=== PATIENT | male | born 1955 | race Hispanic/Latino ===

== ENCOUNTER 2018-04-05 09:16 | Observation (INO) | payer BC ==
[2018-04-05 09:46] LABS: #Basophils 0.1 thou/uL (0.0-0.2); #Eosinphils 0.2 thou/uL (0.0-0.7); #Lymphocytes 2.5 thou/uL (1.20-3.40); #Monocytes 0.3 thou/uL (0.11-0.59); #Neutrophils 2.5 thou/uL (1.40-6.50); %Basophils 0.9 % (0.0-1.0); %Eosinophils 3.8 % (0.0-10.0); %Lymphocytes 45.1 % (21.0-51.0); %Monocytes 6.1 % (0.0-10.0); %Neutrophils 44.2 % (42.0-75.0); Hemoglobin 14.8 g/dL (14.0-18.0); Mean Corpuscular Hemoglobin 28.9 pg (27.0-31.0); Mean Corpuscular Volume 90.1 fL (78.0-98.0); Mean Platelet Volume 7.1 fL (7.4-10.4); Platelet Count 256 thou/uL (130-400); RBC Distribution Width 12.2 % (11.5-14.5); Red Blood Cell (RBC) Count 5.14 mill/uL (4.70-6.10); White Blood Cell (WBC) Count 5.6 thou/uL (4.8-10.8)
--- NOTE | 2018-04-05 10:13 | RAD ---
PORTABLE CHEST 1 VIEW: Date: 04/05/18 Time: 0846 hours HISTORY: Chest pain radiating to the left arm with difficulty breathing and nausea. FINDINGS: Comparison made with exam of 06/16/16. The heart size is normal. The lungs are expanded without focal areas of consolidation, pneumothoraces , or pleural effusions. IMPRESSION: No radiographic evidence of acute cardiopulmonary process. POS: [facility]
[2018-04-05 10:14] LABS: ALT (SGPT) 29 U/L (8-55); AST (SGOT) 23 U/L (5-34); Albumin 3.8 g/dL (3.4-4.8); Alkaline Phosphatase 86 U/L (40-150); Anion Gap 13 mmol/L (10-20); BUN (Urea Nitrogen) 12 mg/dL (8.4-25.7); Bilirubin, Total 0.8 mg/dL (0.2-1.2); CK (CPK) 79 U/L (30-200); Calc. Creatinine Clearance 0 mL/min (70-130); Calcium 8.8 mg/dL (7.8-10.44); Carbon Dioxide 22 mmol/L (23-31); Chloride 106 mmol/L (98-107); Estimated GFR-MDRD Greater than 90; Globulin 3.1 g/dL (2.4-3.5); Glucose 132 mg/dL (80-115); Lipase 13 U/L (8-78); Potassium 3.6 mmol/L (3.5-5.1); Protein, Total 6.9 g/dL (5.8-8.1); Sodium 137 mmol/L (136-145)
[2018-04-05 10:18] LABS: CKMB 1.7 ng/mL (0-6.6); Troponin I Less than 0.010 ng/mL (< 0.028)
[2018-04-05] MEDS ORDERED: Ondansetron PF 4 MG/2 ML Vial IVP PRN (12:49)
[2018-04-05] MEDS ORDERED: Ondansetron ODT 4 MG TAB SL PRN (12:49)
[2018-04-05 12:50] VITALS: BMI 37.8
--- NOTE | 2018-04-05 13:30 | HP ---
HISTORY OF PRESENT ILLNESS: This is a 63-year-old male with a history of hypertension , hyperlipidemia, anxiety disorder and reflux, who presents with chest pain. The patient did have a cardiac catheterization in 2011 which was found to be unremarkable. He was also hospitalized in 06/07 for chest pain and a Cardiolite stress test was unremarkable. Approximately [address] op his Zoloft and has done well since then. This morning he was walking around in the kitchen when h e developed sudden onset of left-sided sternal chest pain radiating down to his left arm. There was no shortness of breath, diaphoresis, nausea or vomiting. EMS was called and prior to their arrival h is chest pain resolved. It lasted for a total of 15 minutes. He has been chest pain free since then . PAST MEDICAL HISTORY: Hypertension, hyperlipidemia, anxiety disorder. He has a tobacco history, ref lux, history of peptic ulcer disease. PAST SURGICAL HISTORY: Right knee arthroscopy, cholecystectomy, elbow surgery, left medial meniscect carson, colonoscopy 2016, left total knee replacement 05/2016 and cardiac catheterization normal 2011. FAMILY HISTORY: Father with cirrhosis and gout. Mother with breast cancer. No other si gnificant family history. SOCIAL HISTORY: He is a former smoker. He quit in 2011. He is remarried. He has 4 kids. He is re tired road construction. He has 2 girls, 2 boys. MEDICATIONS: Aspirin 81 mg daily, amlodipine 5 mg daily, Lipitor 10 daily, sertraline, stopped 1 yea r ago at 100 mg daily, Protonix 40 daily. REVIEW OF SYSTEMS: As above. ALLERGIES: None. PHYSICAL EXAMINATION: VITAL SIGNS: Blood pressure 112/70, temperature 97.8, respirations 22, pulse 80. GENERAL: In no acute distress at this time. HEENT: Clear. HEART: Regular rate and rhythm. LUNGS: Clear. ABDOMEN: Soft with mild epigastric tenderness. EXTREMITIES: With no edema. LABORATORY: White count 5.6, H&H 14 and 46, platelet 256. Electrolytes normal. Creatinine 0.75, BU N 12, blood sugar 132, troponin less than 0.010. BNP 45. Chest x-ray negative. ASSESSMENT: 1. Chest pain, rule out myocardial infarction. 2. Hypertension. 3. Hyperlipidemia. 4. Anxiety disorder. 5. Tobacco history. 6. History of peptic ulcer disease. PLAN: 1. Cardiolite stress test and echocardiogram. 2. I doubt this is cardiac in nature, but will rule out cardiac disease. This could be anxiety vers us reflux. The patient will be restarted on his Zoloft at 50 daily, and his Protonix will be continu ed. We will continue to follow.
[2018-04-05 13:46] LABS: Troponin I 0.027 ng/mL (< 0.028)
--- NOTE | 2018-04-05 16:22 | NM ---
CARDIAC SPECT: CLINICAL HISTORY: 63-year-old male with chest pain, hypertension, and dyslipidemia. TECHNIQUE: A stress-only myocardial perfusion scan was performed following the intravenous administration of 32 mCi technetium-99m sestamibi. Pharmacologic stress with Adenosine was monitored and interpreted by Dr Julia Brambila. FINDINGS: Homogeneous tracer distribution is seen in the myocardial segments on the post stress images. GATED SPECT LVEF: 68%. WALL MOTION EXAM: Normal. IMPRESSION: Normal post stress myocardial perfusion scan. POS: [facility]
[2018-04-05] MEDS: Sodium Chloride 0.9% 1,000 ML IV SCH (16:46)
[2018-04-05 16:51] LABS: Troponin I 0.025 ng/mL (< 0.028)
[2018-04-05] MEDS ORDERED: Atorvastatin Calcium 10 MG TAB PO SCH (21:00)
[2018-04-06] MEDS: Sodium Chloride 0.9% 1,000 ML IV SCH (01:04)
--- NOTE | 2018-04-06 07:45 | DIS ---
DATE OF ADMISSION: 04/05/2018 DATE OF DISCHARGE: 04/06/2018 DISCHARGE DIAGNOSES: 1. Chest pain. 2. Hypertension. 3. Hyperlipidemia. 4. Anxiety disorder. 5. Tobacco history. 6. History of peptic ulcer disease. DISCHARGE MEDICATIONS: Amlodipine 5 mg daily, Lipitor 10 mg daily, aspirin 81 mg daily, isosorbide 3 0 p.o. daily, omeprazole 40 daily, sertraline 50 daily. BRIEF HISTORY: This is a 63-year-old Latin-Swiss male with a history of hypertension, hyperlipide alexandra, anxiety disorder who presents with chest pain. He had a cardiac catheterization in 2011, which was unremarkable. He was also hospitalized on 06/2016 for chest pain and the Cardiolite at that time was negative. Approximately 1 year ago, he stopped his Zoloft. He has done well until the day of a dmission when he had acute onset of chest pain radiating down to left upper extremity. There is no s hortness breath, no diaphoresis, no nausea or vomiting. It last for approximately 15 minutes and res olved by the time he came to the ER. HOSPITAL COURSE: A Cardiolite stress test was negative. Echo is pending. The patient has had no re current chest pain. The sertraline has been restarted at 50 daily. He will follow up in the office in 2 weeks. His exam has been unremarkable.
[2018-04-06 08:11] VITALS: BP 123/83; TEMP 97.8
[2018-04-06] MEDS ORDERED: Aspirin 325 MG TAB PO SCH (09:00)
[2018-04-06] MEDS ORDERED: Amlodipine 5 MG TAB PO SCH (09:00)
--- NOTE | 2018-04-08 23:07 | EKG ---
Test Reason : Blood Pressure : / mmHG Vent. Rate : 050 BPM Atrial Rate : 050 BPM P-R Int : 158 ms QRS Dur : 090 ms QT Int : 476 ms P-R-T Axes : 022 -01 009 degrees QTc Int : 433 ms Sinus bradycardia with sinus arrhythmia Otherwise normal ECG Confirmed by SANDY KERNS ([id number]), newspaper managing editor TERRELL PATEL ([id number]) on 04/08/2018 11:07:15 PM Referred By: Confirmed By:SANDY KERNS
== END 2018-04-06 11:41 | disposition home or self-care (01) ==
LOC: ERS 09:16 → 2SW 11:08
PROVIDERS: ADMIT Family Medicine; ATTEND Family Medicine
DX: R07.2 Precordial pain (principal); E78.5 Hyperlipidemia, unspecified; F41.9 Anxiety disorder, unspecified; K21.9 Gastro-esophageal reflux disease without esophagitis; I10 Essential (primary) hypertension; Z87.891 Personal history of nicotine dependence; Z79.82 Long term (current) use of aspirin; Z79.899 Other long term (current) drug therapy
CPT/HCPCS: 36415; 71045; 78452; 80053; 82550; 82553; 83690; 83880; 84484; 85025; 93005; 93017; 93306; 96360; 96361; A9500; G0378; J0153

== ENCOUNTER 2018-10-03 11:15 | Inpatient (IN) | payer BC ==
[~2018-10-03 11:15] MED LIST: Nitroglycerin 4.9 GM Bottle ONE
[2018-10-03 11:40] LABS: #Eosinphils 0.1 thou/uL (0.0-0.7); #Lymphocytes 2.2 thou/uL (1.20-3.40); #Monocytes 0.5 thou/uL (0.11-0.59); #Neutrophils 3.9 thou/uL (1.40-6.50); %Basophils 0.3 % (0.0-1.0); %Eosinophils 1.8 % (0.0-10.0); %Lymphocytes 33.1 % (21.0-51.0); %Monocytes 6.8 % (0.0-10.0); Hemoglobin 15.2 g/dL (14.0-18.0); Mean Corpuscular HGB CONC 30.9 g/dL (32.0-36.0); Mean Corpuscular Volume 87.4 fL (78.0-98.0); Mean Platelet Volume 7.6 fL (7.4-10.4); Platelet Count 259 thou/uL (130-400); RBC Distribution Width 12.7 % (11.5-14.5); Red Blood Cell (RBC) Count 5.64 mill/uL (4.70-6.10); White Blood Cell (WBC) Count 6.7 thou/uL (4.8-10.8)
--- NOTE | 2018-10-03 11:49 | RAD ---
PORTABLE CHEST 1 VIEW: DATE: 10/03/2018. TIME: 11:32 p.m. HISTORY: Chest pain. FINDINGS: Comparison is made with the exam of 04/05/2018. The heart size is borderline. No focal areas of consolidation, pneumothoraces, jayy pulmonary edema , or pleural effusions are seen. IMPRESSION: No acute process. POS: [facility]
[2018-10-03] MEDS ORDERED: Nitroglycerin 0.4 MG TAB 1 EACH ONE (12:09)
[2018-10-03 12:12] LABS: ALT (SGPT) 30 U/L (8-55); AST (SGOT) 25 U/L (5-34); Albumin 4.2 g/dL (3.4-4.8); Alkaline Phosphatase 113 U/L (40-150); Anion Gap 17 mmol/L (10-20); BUN (Urea Nitrogen) 17 mg/dL (8.4-25.7); Bilirubin, Total 0.8 mg/dL (0.2-1.2); CK (CPK) 87 U/L (30-200); Calc. Creatinine Clearance 0 mL/min (70-130); Calcium 9.3 mg/dL (7.8-10.44); Carbon Dioxide 19 mmol/L (23-31); Chloride 107 mmol/L (98-107); Estimated GFR-MDRD Greater than 90; Globulin 3.2 g/dL (2.4-3.5); Glucose 121 mg/dL (80-115); Lipase 13 U/L (8-78); Potassium 4.3 mmol/L (3.5-5.1); Protein, Total 7.4 g/dL (5.8-8.1); Sodium 139 mmol/L (136-145)
[2018-10-03] MEDS ORDERED: Acetaminophen 500 MG TAB ONE (13:06)
[2018-10-03 14:58] LABS: Troponin I 0.031 ng/mL (< 0.028)
[2018-10-03 17:17] VITALS: BMI 19.3
[2018-10-03 18:10] LABS: Troponin I Less than 0.010 ng/mL (< 0.028)
[2018-10-03] MEDS ORDERED: Ondansetron ODT 4 MG TAB PO PRN (18:11)
[2018-10-03] MEDS ORDERED: Zolpidem Tartrate 5 MG TAB PO PRN (18:11)
[2018-10-03] MEDS ORDERED: Enoxaparin Sodium 40 MG/0.4 ML SYRINGE SC SCH (18:30)
--- NOTE | 2018-10-04 00:56 | HP ---
HISTORY OF PRESENT ILLNESS: The patient is a 63-year-old male who presented to the emergency room complaining of chest pain since early this morning. He notes the pain radiated to his jaw with associated symptoms of numbness, dizziness, some shortness of breath. He has had previous history of chest pain and discomfort, most recently in last March, at which time he had a stress test done which was normal. He knows he is in normal health today when he began having chest discomfort early this morning while he was driving his car. He has not noted any fever, nausea, vomiting, diarrhea, or noted another episode of this; which he took an aspirin and came to the emergency room. He has had no prior history of atherosclerotic coronary artery disease. He appears to have had several cardiac catheterizations by history, done by Dr. Samson. Currently at this time, he notes no chest pain. ALLERGIES: HE HAS NO KNOWN ALLERGIES. CURRENT MEDICATIONS: 1. Aspirin. 2. Pantoprazole. 3. Isosorbide. 4. Amlodipine/atorvastatin 5/10. MEDICAL HISTORY: Positive for hypertension, hypercholesterolemia, gastroesophageal reflux disease. PAST SURGICAL HISTORY: Positive for cholecystectomy, total knee replacement, tonsillectomy, heart catheterization. SOCIAL AND PERSONAL HISTORY: He is . He is retired. He does not smoke at this time. He quit 7 years ago. FAMILY HISTORY: Negative for atherosclerotic coronary artery disease. There is some valvular heart disease noted. PHYSICAL EXAMINATION: VITAL SIGNS: Temperature 97.5, pulse 54, respirations 20, O2 saturation 97%. BP 140/68. GENERAL: He is alert and active, in no acute distress. HEENT: Unremarkable. NECK: Supple. Full range of motion. No masses. No carotid bruits auscultated. Thyroid midline. No thyromegaly or thyroid masses. LUNGS: Clear. HEART: Reveals a regular rate and rhythm. No murmurs, gallops, or rubs. ABDOMEN: Soft and nontender. Bowel sounds present and active. No hepatosplenomegaly is noted. There is no evidence of any rebound or guarding. EXTREMITIES: No clubbing, edema, or cyanosis. NEUROLOGIC: Alert and oriented x3. Cranial nerves 2 through 12 are intact. LABORATORY DATA: His white blood count 6.7, hemoglobin 15.2, hematocrit 49.2. Chemistry; sodium 139, potassium 4.3, chloride 107, CO2 19, BUN 17, creatinine 0.79. Initial troponin is less than 0.01. Second troponin is minimally elevated at 0.31. EKG reveals sinus bradycardia, no evidence of acute coronary changes. Chest x-ray is otherwise clear. IMPRESSION: This is a 63-year-old male with complaints of substernal chest pain radiating to his jaw and left arm. This could represent angina at this time. PLAN: The patient will be admitted, to continue on aspirin. Continue his home medications. I have talked with the family and talked with the patient. I have recommended a stress test to be done tomorrow morning. After a stress test, further testing will be indicated based on that. Dr. Martinez will take over the care in he a.m. Job ID: [id number]
[2018-10-04] MEDS ORDERED: ATORVASTATIN PO SCH (09:00)
[2018-10-04] MEDS ORDERED: [UNRECOGNIZED DRUG - OTHER] PO SCH (09:00)
[2018-10-04] MEDS ORDERED: AMLODIPINE PO SCH (09:00)
[2018-10-04] MEDS: Aspirin 81 mg Enteric Coated Tablet PO SCH (10:24)
[2018-10-04] MEDS: Atorvastatin Calcium 10 MG TAB PO SCH (10:24)
[2018-10-04] MEDS: Amlodipine 5 MG TAB PO SCH (10:24)
[2018-10-04] MEDS: Multivitamin W/ Minerals 1 TAB PO SCH (10:25)
--- NOTE | 2018-10-04 13:31 | PRG ---
DATE OF SERVICE: 10/04/2018 SUBJECTIVE: The patient is doing well this morning. No complaints of chest pain. Awaiting for a Cardiolite stress test. The patient did have a normal Cardiolite stress test in March 2018 as well as a cardiac cath in December 2011, which was found to be completely normal. No evidence of any coronary artery disease. OBJECTIVE: VITAL SIGNS: Temperature 97.9, pulse 59, and blood pressure 100/59. HEART: Regular rate and rhythm. LUNGS: Clear. ABDOMEN: Soft, obese. EXTREMITIES: With no edema. LABORATORY DATA: Cholesterol 196, triglycerides 208. ASSESSMENT: 1. Chest pain. 2. Anxiety/panic disorder. 3. Normal coronary arteries in December 2011. 4. Normal Cardiolite stress test in March 2018. PLAN: 1. Cardiolite stress test today. 2. The patient's etiology is most likely anxiety disorder. The patient was going to the bathroom and felt very faint following this probably experiencing a vasovagal reaction. This was then later lead to chest pain. It then reoccurred an hour later. He then presented to the ER. 3. Plan to do a Cardiolite stress test today and if that is negative, plan to discharge home. We will follow up in the office and make adjustments to his medications. In the past, he was controlled with Xanax, but he eventually wean himself from this. Job ID: [id number]
[2018-10-04] MEDS: Acetaminophen 325 MG TAB PO PRN (15:41)
[2018-10-04] MEDS ORDERED: Communication Order-Pharmacy FS SCH (17:45)
--- NOTE | 2018-10-05 00:54 | CON ---
DATE OF CONSULTATION: HISTORY OF PRESENT ILLNESS: Wei Meier is a 63-year-old male, patient of Dr. Inocencio Samson. He has undergone multiple cardiac catheterizations in the past for evaluation of chest discomfort. Most recent was in 2011 when he had normal coronary arteries. He has undergone a Cardiolite test in June 2016 and in March 2018, which were normal. He presents to the emergency room complaining of chest pressure radiating to the jaw with some shortness of breath. He states that he has this type of discomfort every 1 or 2 months. He is on medications that would be appropriate for coronary spasm. He does not take nitroglycerin whenever he has the discomfort. He apparently underwent adenosine Cardiolite testing today. The preliminary report shows that there were no significant EKG changes. However, apparently after, that he became bradycardic with heart rates to 34 per minute. He apparently had chest discomfort and there was [address]-elevation in II, III, and F. I am uncertain as to how long this lasted or what he was treated with. I do not see any results of the nuclear scan on [facility]. PAST MEDICAL HISTORY: Hypertension, hypercholesterolemia, GERD. OPERATIONS: Cholecystectomy, total knee replacement, tonsillectomy. SOCIAL HISTORY: He quit smoking 7 years ago. He does not drink. FAMILY HISTORY: Negative for coronary artery disease. REVIEW OF SYSTEMS: A 12-point review of systems is otherwise unremarkable. PHYSICAL EXAMINATION: VITAL SIGNS: Blood pressure 98/66, pulse of 66. HEENT: PERRL. NECK: Supple. CHEST: Clear. CARDIAC: S1 and S2 normal without any S3, S4, or murmurs. ABDOMEN: Normal bowel sounds without tenderness or organomegaly. EXTREMITIES: Reveal no clubbing, cyanosis, or edema. NEUROLOGIC: Grossly intact. SKIN: Warm and dry. DIAGNOSTIC AND LABORATORY DATA: Admission EKG revealed normal sinus rhythm and minimal voltage criteria for LVH. CBC is unremarkable. Sodium 139, potassium 4.3, chloride 107, carbon dioxide 19, BUN 17, creatinine 0.71, glucose 121. Troponin I one value is up to 0.031. Cholesterol 196, triglycerides 208, HDL 49, LDL 105. IMPRESSION: 1. Recurrent admissions for chest discomfort, now having episodes where he become extremely bradycardic with heart rates into the 30s after adenosine Cardiolite testing. He also has ST-elevation. He certainly may have developed fixed coronary artery disease over the last 7 years since his last catheterization. This also maybe due to transient coronary artery spasm. 2. Hypertension. 3. Hypercholesterolemia. 4. Former smoker. PLAN: The situation discussed with the patient. It was recommended that he undergo cardiac catheterization with Dr. Samson in the morning. Risks of catheterization were discussed including , myocardial infarction, dye reaction, vascular injury, CVA, transfusion, limb loss, renal loss, etc. Risks of intervention with PTCA and stent placement were discussed including , myocardial infarction, emergent CABG, restenosis, stent thrombosis, vessel perforation, etc. He has no significant history of gastrointestinal bleeding. He denies any previous history of stroke. He does not have any upcoming surgeries, and overall is recommended that a drug-eluting stent be placed if needed. He agrees to proceed. Job ID: [id number]
[2018-10-05] MEDS: Atorvastatin Calcium 10 MG TAB PO SCH (05:37)
[2018-10-05] MEDS: Amlodipine 5 MG TAB PO SCH (05:37)
[2018-10-05] MEDS: Aspirin 81 mg Enteric Coated Tablet PO SCH (05:37)
[2018-10-05] MEDS: Multivitamin W/ Minerals 1 TAB PO SCH (05:37)
[2018-10-05 05:38] VITALS: BP 110/55
[2018-10-05] MEDS ORDERED: Sodium Chloride 0.9% 1,000 ML IV SCH (06:00)
[2018-10-05] MEDS ORDERED: Fentanyl 100 MCG/2 ML VIAL ONE (07:41)
[2018-10-05] MEDS ORDERED: Midazolam HCl 2 mg/2 ml Vial ONE (07:41)
[2018-10-05] MEDS ORDERED: Iopamidol 370 76% 50 ML VIAL FS ONE (08:47)
[2018-10-05] MEDS ORDERED: Iopamidol 370 76% 100 ML VIAL ONE (08:47)
[2018-10-05] MEDS ORDERED: Nitroglycerin 0.4 MG TAB (25 Tab Bottle) SL PRN (09:00)
[2018-10-05] MEDS ORDERED: Acetaminophen/Codeine 30-300mg Tablet PO PRN ×2 (09:00)
[2018-10-05] MEDS ORDERED: Sodium Chloride 0.9% 200 ML IV PRN (09:00)
--- NOTE | 2018-10-05 09:19 | NM ---
EXAM: CARDIAC SPECT HISTORY: Chest pain TECHNIQUE: A rest only myocardial perfusion scan was performed following the intravenous administrati on of 10 mCi technetium 99m sestamibi. FINDINGS: There are defects in the distal anteroseptal and proximal inferior beard. This may either be due to s carring or attenuation artifacts. IMPRESSION: Limited exam as above
[2018-10-05] MEDS ORDERED: ALPRAZolam 0.5 MG TAB PO PRN (10:43)
--- NOTE | 2018-10-05 10:53 | PRG ---
DATE OF SERVICE: 10/05/2018 SUBJECTIVE: This is a 63-year-old male, who presents with chest pain. He has a history of recurrent chest pain, off and on. As noted, he had a normal cardiac cath in 2011 as well as normal Cardiolite stress test. Yesterday while undergoing another Cardiolite stress test, he had an episode of severe chest pain with some EKG changes. Overnight, he has states that he has had some occasional small bouts of chest pain. OBJECTIVE: VITAL SIGNS: Temperature 98.5, pulse 58, blood pressure 118/72, O2 saturation 98%, and respiratory rate 12. GENERAL: No acute distress at this time, resting comfortably. HEENT: Clear. HEART: Regular rate and rhythm. LUNGS: Clear. ABDOMEN: Soft and nontender. EXTREMITIES: No edema. LABORATORY DATA: None. ASSESSMENT: 1. Chest pain, rule out coronary artery disease. Rule out coronary artery spasm. 2. Anxiety/panic disorder. 3. Normal coronary arteries in December 2011 and normal Cardiolite stress test in March 2018 and in 2016. PLAN: 1. Cardiolite stress test this morning. Rule out coronary artery disease. 2. May have to increase his isosorbide. 3. We will review with the patient his history of antianxiety medicines. At this time, I do not believe he is on his Zoloft. He may need to be restarted. We will continue to follow. Job ID: [id number]
[2018-10-05] MEDS: Acetaminophen 325 MG TAB PO PRN (10:57)
[2018-10-06] MEDS: Aspirin 81 mg Enteric Coated Tablet PO SCH (08:50)
[2018-10-06] MEDS: Multivitamin W/ Minerals 1 TAB PO SCH (08:50)
[2018-10-06] MEDS: Atorvastatin Calcium 10 MG TAB PO SCH (08:50)
[2018-10-06] MEDS: Amlodipine 5 MG TAB PO SCH (08:51)
[2018-10-06 10:31] VITALS: TEMP 98.4
--- NOTE | 2018-10-06 13:53 | DIS ---
DATE OF ADMISSION: 10/03/2018 DATE OF DISCHARGE: 10/06/2018 DISCHARGE DIAGNOSES: 1. Chest pain, rule out coronary artery spasm. 2. Anxiety disorder/panic disorder. 3. Hypertension. 4. Hyperlipidemia. 5. Former smoker. DISCHARGE MEDICATIONS: Amlodipine 5 mg daily, Lipitor 10 daily, sertraline 100 daily, Protonix 40 daily, multivitamin daily, isosorbide, Imdur ER 60 daily, aspirin 81 daily. BRIEF HISTORY: This is a 63-year-old male with above medical problems, presents with chest pain, began on the morning of admission. He complains of the pain radiating to his left shoulder and jaw. He had numbness, tingling, and dizziness with shortness of breath. He has had recurrent episodes throughout the years. He had normal cardiac cath in 2011 with a normal Cardiolite stress test in 2016 and 2017. HOSPITAL COURSE: The patient had a near syncopal episode with the Cardiolite stress test. He then underwent a cardiac catheterization, which he was found to have normal coronary arteries. No evidence of any coronary artery disease. He has had occasional bouts of chest pain in the hospital. His Imdur was increased from 30 to 60 mg daily. He still has occasional bouts. He also has chest wall tenderness. He does have a long history of anxiety/panic disorder. At this point, we will continue him with Imdur 60 daily. May have to increase his Zoloft at followup. Weight loss and exercise are critical for this patient. He continues to remain obese. We will continue to follow on outpatient basis. Job ID: [id number]
== END 2018-10-06 13:27 | disposition home or self-care (01) | DRG 880 ==
LOC: ERS 11:15 → OBSVTOIN 14:10 → ERHOLD 14:10 → 2SW 17:10 → IMCU/EMU 10-04 09:40
PROVIDERS: ADMIT Family Medicine; ATTEND Family Medicine
PROC: 4A023N7 Measurement of Cardiac Sampling and Pressure, Left Heart, Percutaneous Approach (ICD-10-PCS; principal; 2018-10-05)
PROC: B2111ZZ Fluoroscopy of Multiple Coronary Arteries using Low Osmolar Contrast (ICD-10-PCS; 2018-10-05)
DX: F41.9 Anxiety disorder, unspecified (principal); I10 Essential (primary) hypertension; K21.9 Gastro-esophageal reflux disease without esophagitis; E78.5 Hyperlipidemia, unspecified; F41.0 Panic disorder [episodic paroxysmal anxiety]; R55 Syncope and collapse; R00.1 Bradycardia, unspecified; Z79.899 Other long term (current) drug therapy; Z79.82 Long term (current) use of aspirin; Z87.891 Personal history of nicotine dependence; Z96.652 Presence of left artificial knee joint; Z90.49 Acquired absence of other specified parts of digestive tract; Z98.890 Other specified postprocedural states
CPT/HCPCS: 36415; 71045; 78452; 80053; 80061; 82550; 83690; 83880; 84484; 85025; 93005; 93017; 93458; 94760; 99152; A9500; C1769; J0153; J1644; J1650; J2250; J3010; Q9967

== ENCOUNTER 2020-04-14 15:44 | Outpatient (CLI) | payer MEDICARE, BC ==
--- NOTE | 2020-04-14 16:17 | RAD ---
RIGHT HIP TWO VIEWS: Indication: Right hip pain after fall. Comparison: None FINDINGS: There is a surgical clip seen within the right inguinal region. No acute displaced fracture is eviden t. IMPRESSION: No acute osseous abnormality. POS: [facility]
== END 2020-04-14 15:45 | disposition home or self-care (01) ==
LOC: BICRAD 15:44
PROVIDERS: ATTEND Family Medicine
DX: M25.551 Pain in right hip (principal)

== ENCOUNTER 2020-04-19 14:09 | Emergency (ER) | payer MEDICARE, BC ==
--- NOTE | 2020-04-19 16:03 | RAD ---
EXAM: Single view of the chest HISTORY: Shortness of breath with cough. Covid positive COMPARISON: 10/03/2018 FINDINGS: Single view of the chest shows a normal sized cardiomediastinal silhouette. Increased inte rstitial lung markings are present. There is no evidence of consolidation, mass, or pleural effusion. Degenerative changes are seen in the spine. IMPRESSION: No evidence of acute cardiopulmonary disease
[2020-04-19 16:04] LABS: #Basophils 0.1 thou/uL (0.0-0.2); #Eosinphils 0.1 thou/uL (0.0-0.7); #Lymphocytes 1.8 thou/uL (1.20-3.40); #Monocytes 0.5 thou/uL (0.11-0.59); #Neutrophils 2.4 thou/uL (1.40-6.50); %Basophils 1.2 % (0.0-1.0); %Eosinophils 2.1 % (0.0-10.0); %Monocytes 9.8 % (0.0-10.0); %Neutrophils 49.9 % (42.0-75.0); Hemoglobin 16.1 g/dL (14.0-18.0); Mean Corpuscular HGB CONC 33.6 g/dL (32.0-36.0); Mean Corpuscular Hemoglobin 29.4 pg (27.0-31.0); Mean Corpuscular Volume 87.5 fL (78.0-98.0); Mean Platelet Volume 8.2 fL (7.4-10.4); Platelet Count 170 thou/uL (130-400); RBC Distribution Width 12.4 % (11.5-14.5); Red Blood Cell (RBC) Count 5.49 mill/uL (4.70-6.10); White Blood Cell (WBC) Count 4.8 thou/uL (4.8-10.8)
[2020-04-19 16:10] LABS: INR-International Normal Ratio 0.9; PTT 31.7 sec (22.9-36.1); Prothrombin Time 12.5 sec (12.0-14.7)
[2020-04-19 16:12] LABS: D-Dimer Test 0.38 *mcg/mL (0.27-0.43)
[2020-04-19 16:25] LABS: ALT (SGPT) 30 U/L (8-55); AST (SGOT) 25 U/L (5-34); Albumin 3.9 g/dL (3.4-4.8); Alkaline Phosphatase 119 U/L (40-110); Anion Gap 14 mmol/L (10-20); BUN (Urea Nitrogen) 15 mg/dL (8.4-25.7); Bilirubin, Total 0.6 mg/dL (0.2-1.2); Calc. Creatinine Clearance 0 mL/min (70-130); Calcium 8.8 mg/dL (7.8-10.44); Carbon Dioxide 24 mmol/L (23-31); Chloride 104 mmol/L (98-107); Globulin 3.9 g/dL (2.4-3.5); Glucose 106 mg/dL (80-115); Potassium 3.7 mmol/L (3.5-5.1); Protein, Total 7.8 g/dL (5.8-8.1); Sodium 138 mmol/L (136-145)
--- NOTE | 2020-04-26 15:25 | EKG ---
Test Reason : Blood Pressure : / mmHG Vent. Rate : 066 BPM Atrial Rate : 066 BPM P-R Int : 134 ms QRS Dur : 100 ms QT Int : 430 ms P-R-T Axes : 042 -10 012 degrees QTc Int : 450 ms Normal sinus rhythm Minimal voltage criteria for LVH, may be normal variant Borderline ECG Confirmed by MATT GROSS, FATUMA Martinez ([id number]), general expeditor RAMO PADRON ([id number]) on 04/26/2020 3:25:17 PM Referred By: Confirmed By:FATUMA GUTIERREZ MD
== END 2020-04-19 16:32 | disposition home or self-care (01) ==
LOC: ERS 14:09
DX: U07.1 COVID-19 (principal); K21.9 Gastro-esophageal reflux disease without esophagitis; E78.5 Hyperlipidemia, unspecified; E78.00 Pure hypercholesterolemia, unspecified; I10 Essential (primary) hypertension; F32.9 Major depressive disorder, single episode, unspecified; F41.9 Anxiety disorder, unspecified; Z87.891 Personal history of nicotine dependence; Z79.82 Long term (current) use of aspirin; Z79.899 Other long term (current) drug therapy
CPT/HCPCS: 71045; 80053; 83605; 83880; 84484; 85025; 85379; 85610; 85652; 85730; 86140; 93005

== ENCOUNTER 2020-07-03 14:33 | Outpatient (CLI) | payer MEDICARE, BC | END 2020-07-03 14:34 | disposition home or self-care (01) | LOC: BICMRI 14:33 | PROVIDERS: ATTEND Orthopaedic Surgery | DX: M47.816 Spondylosis without myelopathy or radiculopathy, lumbar region (principal); M48.061 Spinal stenosis, lumbar region without neurogenic claudication; M48.07 Spinal stenosis, lumbosacral region | CPT/HCPCS: 72148 ==

== ENCOUNTER 2021-03-08 20:23 | Emergency (ER) | payer MEDICARE, BC | END 2021-03-08 21:43 | disposition home or self-care (01) | LOC: ERS 20:23 | DX: S90.32XA Contusion of left foot, initial encounter (principal); K21.9 Gastro-esophageal reflux disease without esophagitis; E78.5 Hyperlipidemia, unspecified; E78.00 Pure hypercholesterolemia, unspecified; I10 Essential (primary) hypertension; Z87.891 Personal history of nicotine dependence; X50.1XXA Overexertion from prolonged static or awkward postures, initial encounter ==